=== PATIENT | female | born 1950 | race Caucasian/White ===

== ENCOUNTER 2020-11-07 08:36 | Emergency (ER) | payer OTHER ==
[~2020-11-07] VITALS: Ht 167.6 cm; Wt 54.5 kg
[2020-11-07 08:42] VITALS: BP 148/75; Ht 167.6 cm; Wt 54.5 kg
[2020-11-07] MEDS ORDERED: LISINOPRIL10 MG PO (08:43)
== END 2020-11-07 10:16 | disposition home or self-care (01) ==
LOC: D.ER 08:36
DX: R58 Hemorrhage, not elsewhere classified (principal); Y81.8 Miscellaneous general- and plastic-surgery devices associated with adverse incidents, not elsewhere classified; R22.9 Localized swelling, mass and lump, unspecified